=== PATIENT | female | born 1980 | race Caucasian/White ===

== ENCOUNTER 2016-11-11 05:30 | Day surgery (SDC) ==
[2016-11-11] MEDS ORDERED: REGLAN ONE (05:36)
[2016-11-11] MEDS ORDERED: PEPCID ONE (05:36)
[2016-11-11] MEDS ORDERED: LR 1,000 ML ONE ×2 (05:36→10:54)
[2016-11-11] MEDS ORDERED: KEFZOL 1 GM/D5W 50 ML ONE (05:36)
[2016-11-11] MEDS ORDERED: VALIUM ONE (06:05)
[2016-11-11] MEDS ORDERED: XYLOCAINE 1% ONE (06:27)
[2016-11-11] MEDS ORDERED: SENSORCAINE 0.25%/EPI 1:200,000 ONE (06:27)
[2016-11-11] MEDS ORDERED: DIPRIVAN 1% ONE (09:04)
[2016-11-11] MEDS ORDERED: FENTANYL ONE (09:04)
[2016-11-11] MEDS ORDERED: MORPHINE ONE (09:12)
[2016-11-11] MEDS ORDERED: NORCO-7.5 PO PRN (09:43)
[2016-11-11] MEDS ORDERED: ZOFRAN IV PRN (09:43)
[2016-11-11] MEDS ORDERED: KLONOPIN PO PRN (09:43)
[2016-11-11 10:45] VITALS: BP 117/64
[2016-11-11] MEDS ORDERED: QUELICIN (DOSE) ONE (10:54)
[2016-11-11] MEDS ORDERED: ZOFRAN ONE (10:54)
[2016-11-11] MEDS ORDERED: XYLOCAINE-MPF 2% ONE (10:54)
[2016-11-11] MEDS ORDERED: DECADRON ONE (10:54)
[2016-11-11] MEDS ORDERED: ROBINUL ONE (10:54)
[2016-11-11] MEDS ORDERED: NEOSTIGMINE ONE (10:54)
--- NOTE | 2016-11-11 12:28 | OPERATIVE NOTE ---
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 PROCEDURE PERFORMED: 1. Right thyroid lobectomy. 2. Autotransplantation of parathyroid gland. COMPLICATIONS: None. ESTIMATED BLOOD LOSS: 10 mL. SPECIMENS: Right thyroid lobe. ANESTHESIA: General. DRAINS: None. OPERATIVE INDICATIONS: A 36-year-old female who is both clinically and biochemically hyperthyroid with 2 nodules in the right thyroid gland. Nuclear medicine studies showed 2 hot nodules in an otherwise suppressed gland on the right side. FNA of these lesions were benign. Thyroid lobectomy was indicated. We did discuss options of radioactive iodine versus lobectomy as she had compressive symptoms in addition to her hormonal symptoms. As such, she has requested and I agree with right thyroid lobectomy. OPERATIVE FINDINGS: There were 2 large nodes in the right thyroid gland that corresponded to the preoperative imaging. OPERATIVE NOTE: The risks, benefits, and alternatives were discussed with the patient. She consented to the procedure. She was taken to the operating room, placed in the supine position. Her neck and chest were prepped with Betadine solution and draped in the usual fashion after general anesthesia was induced without complication. She received preincisional antibiotics. Her neck was extended and she was placed in reverse Trendelenburg position to decrease venous distension in neck veins. A low collar incision was made approximately 2 fingerbreadths above the sternal notch after a time-out was performed between nursing, surgical, and anesthesia staff. We did infiltrate local anesthetic with epinephrine prior to this. Made the skin incision in a natural skin fold and carried it down through the platysma down to the level of the strap muscles. We divided these in the midline raphe of the strap muscles. We dissected the strap muscles off the right thyroid lobe. These were quite adherent to the nodules but we were able to successfully do this. We then used the LigaSure device to divide the upper pole after circumferentially dissecting this. We retracted the thyroid medially, the strap muscles and the carotid laterally, and we were able to identify very proximal along its course the recurrent laryngeal nerve and protected this. We then divided the middle thyroid vein . The large nodule in the inferior lobe was quite adjacent and intimately approximated the nerve. We protected this and divided after dissecting down the nerve the inferior pole vessels. Attention was then turned, divided the isthmus to facilitate retraction out of the right side of her neck. We did this and using bipolar device, we dissect off all the connective tissue along the course of the nerve, protecting it all the way to its insertion. We were able to identify and preserve the inferior parathyroid gland on a well vascularized pedicle. The superior gland on the right was very small, adherent to the gland and, as such, required autotransplantation as it is removed with specimen. We minced this, placed saline and created a pocket in the strap muscle on the right, deposited the gland, and closed the defect with a [id number] 3-0 Vicryl. We irrigated the wound, obtained hemostasis and this was confirmed. We again inspected the nerve and it was intact along its course as was the right inferior parathyroid gland. All sponge, instrument, and needle counts were correct. We closed the midline of the strap muscles with interrupted Vicryl sutures and then the platysma with interrupted Vicryl sutures, and then using a knotless subcuticular 4-0 Monocryl, we closed the skin. Applied Dermabond for dressing. She tolerated the procedure well. Transferred to PACU in good condition. I spoke with the family. MTDD
[2016-11-11] MEDS ORDERED: DEXTROAMPHETAMINE PO SCH (21:00)
[2016-11-11] MEDS ORDERED: AMPHETAMINE PO SCH (21:00)
[2016-11-11] MEDS ORDERED: ALDACTONE PO SCH (21:00)
[2016-11-12] MEDS ORDERED: CALCIUM 500 MG PO SCH (09:00)
[2016-11-12] MEDS ORDERED: CYANOCOBALAMIN 1000 MCG PO SCH (09:00)
[2016-11-12] MEDS ORDERED: PROZAC PO SCH (09:00)
== END 2016-11-11 11:00 | disposition home or self-care (01) ==
LOC: OPS 05:30
PROVIDERS: ATTEND Surgery
DX: D34 Benign neoplasm of thyroid gland (principal); F17.210 Nicotine dependence, cigarettes, uncomplicated
CPT/HCPCS: 82310; 83970; 88307; J0330; J0690; J1100; J2270; J2405; J3010; J7120; J2710